=== PATIENT | male | born 1945 | race Caucasian/White ===

== ENCOUNTER 2018-03-29 11:21 | Outpatient (CLI) | payer MEDICARE, BC, SELFPAY ==
[2018-03-29 12:03] LABS: HCT 41.7 % (40.0-50.0); HGB 13.5 g/dL (13.5-17.5); Mean Corp. HGB Concentration 32.4 g/dL (32.0-36.0); Mean Corpuscular Hemoglobin 32.5 pg (27.0-33.0); Mean Corpuscular Volume 100.2 fL (80-95); Mean Platelet Volume 11.4 fL (8.0-11.0); Platelet Count 178 x1000/uL (130-400); RBC 4.16 m/cumm (4.50-6.00); RBC Distribution Width 14.9 % (11.8-14.1); White Blood Cell Count 6.28 k/cumm (4.4-10.8)
[2018-03-29 12:54] LABS: ALT 34 U/L (12-78); AST 22 U/L (15-37); Albumin 4.2 g/dL (3.4-5.0); Alkaline Phosphatase 100 U/L (46-116); Anion Gap 7.9 mmol/L (3-11); BUN 20 mg/dL (7-18); Bilirubin, Total 0.5 mg/dL (0.2-1.0); CO2 30.1 mmol/L (21.0-32.0); CREATININE 1.09 mg/dL (0.70-1.30); Calcium 8.6 mg/dL (8.5-10.1); Chloride 105 mmol/L (98-107); Glucose 83 mg/dL (70-100); Potassium 4.5 mmol/L (3.5-5.1); Sodium 143 mmol/L (136-145); Total Protein 6.5 g/dL (6.4-8.2)
== END 2018-03-29 11:41 ==
PROVIDERS: PCP General Practice; Visit Provider General Practice
DX: Z01.818 Encounter for other preprocedural examination (principal); R69 Illness, unspecified
CPT/HCPCS: 36415; 80053; 85027

== ENCOUNTER 2019-01-07 13:35 | Outpatient (CLI) | payer MEDICARE, BC, SELFPAY ==
--- NOTE | 2019-01-07 11:44 | DI.RAD_ITS ---
SYMPTOM/DIAGNOSIS: FALL, PAIN RIGHT ANKLE: Three views. No priors. No acute fracture or dislocation is seen. There are well corticated osseous densities seen at the tip of the medial and lateral malleoli which appear old. There is a moderate size spur at the plantar surface of the calcaneus There is soft tissue swelling about the ankle. IMPRESSION: No acute fracture or dislocation.
--- NOTE | 2019-01-07 11:44 | DI.RAD_ITS ---
SYMPTOM/DIAGNOSIS: FALL, PAIN RIGHT KNEE: Three views. No acute fracture or dislocation is seen. Mild degenerative changes are present in the knee. There is a moderate suprapatellar joint effusion. IMPRESSION: No acute fracture or dislocation.
--- NOTE | 2019-01-07 11:44 | DI.RAD_ITS ---
SYMPTOM/DIAGNOSIS: FALL, PAIN RIGHT TIB/FIB: Four views. No acute fracture or dislocation is identified. The soft tissues are unremarkable.
== END 2019-01-07 13:55 ==
PROVIDERS: PCP General Practice; Visit Provider General Practice
DX: M79.604 Pain in right leg (principal); W19.XXXA Unspecified fall, initial encounter; M25.561 Pain in right knee; M17.11 Unilateral primary osteoarthritis, right knee; M25.461 Effusion, right knee; M25.571 Pain in right ankle and joints of right foot; M77.31 Calcaneal spur, right foot
CPT/HCPCS: 73562; 73590; 73610

== ENCOUNTER 2019-01-20 14:17 | Outpatient (CLI) | payer MEDICARE, BC, SELFPAY ==
[2019-01-20 14:56] LABS: Hemoglobin A1C 5.7 % (4.5-6.2)
[2019-01-20 16:24] LABS: Anion Gap 8.7 mmol/L (3-11); BUN 22 mg/dL (7-18); CO2 28.3 mmol/L (21.0-32.0); CREATININE 1.55 mg/dL (0.70-1.30); Chloride 105 mmol/L (98-107); Estimated GFR 43.93 (mL/min/1.73m2); Potassium 4.3 mmol/L (3.5-5.1); Sodium 142 mmol/L (136-145)
== END 2019-01-20 14:37 ==
PROVIDERS: PCP General Practice; Visit Provider General Practice
DX: I10 Essential (primary) hypertension (principal); R73.03 Prediabetes
CPT/HCPCS: 36415; 80051; 84520; 82565; 83036

== ENCOUNTER 2019-03-07 11:50 | Outpatient (CLI) | payer MEDICARE, BC, SELFPAY ==
[2019-03-07 13:26] LABS: CREATININE 1.12 mg/dL (0.70-1.30)
== END 2019-03-07 12:10 ==
PROVIDERS: PCP General Practice; Visit Provider General Practice
DX: I10 Essential (primary) hypertension (principal)
CPT/HCPCS: 36415; 82565

== ENCOUNTER 2019-11-29 10:51 | Outpatient (REF) | payer MEDICARE, BC, SELFPAY ==
[2019-11-29 14:41] LABS: Hemoglobin A1C 5.7 % (3.8-5.6)
[2019-11-29 14:53] LABS: Anion Gap 8.1 mmol/L (3-11); BUN 26 mg/dL (7-18); CO2 27.9 mmol/L (21.0-32.0); Calcium 9.2 mg/dL (8.5-10.1); Calculated LDL 55 mg/dL (<100); Chloride 108 mmol/L (98-107); Cholesterol 127 mg/dL (<200); Estimated GFR 59.02 (mL/min/1.73m2); Glucose 106 mg/dL (74-106); HDL Cholesterol 57 mg/dL (40-60); Potassium 4.7 mmol/L (3.5-5.1); Sodium 144 mmol/L (136-145); Triglyceride 79 mg/dL (<150)
== END 2019-11-29 11:11 ==
LOC: NCHCN 10:51
PROVIDERS: PCP Nurse Practitioner Family; Visit Provider Nurse Practitioner Family
DX: E78.5 Hyperlipidemia, unspecified (principal); R73.03 Prediabetes; I10 Essential (primary) hypertension
CPT/HCPCS: 80048; 80061; 83036

== ENCOUNTER 2020-09-06 12:29 | Outpatient (CLI) | payer MEDICARE, BC, SELFPAY ==
--- NOTE | 2020-09-06 06:00 | DI.RAD_ITS ---
EXAM: XR PAIN CLINIC LUMBAR SP 2V CLINICAL HISTORY: Dx: Lumbar Radiculopathy TECHNIQUE: 2D and realtime digital imaging was performed. CONTRAST MATERIAL: None. COMPARISON: No exams were available for comparison FINDINGS: Fluoroscopy was provided for pain management during sacral canal epidural injection. See procedure r eport for details. Fluoro time: 641 seconds Cumulative dose: 30.8 mGy IMPRESSION:
[2020-09-06 12:41] VITALS: BP 128/56; PULSE 67; RESP 16; TEMP 37; O2SAT 96
[2020-09-06] MEDS: methylPREDNISolone ACETATE 80 MG/ML VIAL IJ (13:15)
[2020-09-06] MEDS: Omnipaque 240 MG/ML 50 ML BTL IJ (13:15)
[2020-09-06 13:16] VITALS: BP 131/96; PULSE 66; RESP 15; O2SAT 99
--- NOTE | 2020-09-06 13:17 | PDOC.PAIN ---
Pain Clinic Procedure Note Procedure Note Procedure Note: Date of Service: September 06, 2018 CAUDAL EPIDURAL STEROID WITH CATHETER INJECTION PROCEDURE NOTE COMMENTS: He is status-post lumbar spine surgery X 4. Thus the reason we are using the caudal approach. I did review Ms. Jamison's evaluation from 08/30/2020. Dx: Lumbosacral radiculopathy RADAMES KIRKLAND has been referred to the [facility] for lumbar epidural steroid injection. Patient was greeted by the nurse who verified patients name and . Patient was then taken to the fluoroscopy suite. Patient was interviewed and the medical record reviewed. There were no medical, pharmacologic, radiographic, or other structural contraindications to attempting fluoroscopically guided lumbar epidural steroid injection. Risks and expected side effects as well as potential benefits of the procedure were reviewed and voiced concerns addressed. The patient consent form was signed and witnessed. Standard time-out procedure was performed. Patient was placed in the prone position on the fluoroscopy table and automated blood pressure cuff and pulse oximeter applied. The skin entry point for entering/approaching the epidural space sacral hiatus and marked. Following thorough chlorhexadine preparation of the skin and draping and 1% lidocaine infiltration of the skin entry point and subcutaneous tissues, a 17 gauge Touhy needle was placed under fluoroscopic guidance and with loss of resistance technique into the epidural space. Needle tip placement and depth were aided and confirmed by fluoroscopy. There was no paresthesia or return of blood or CSF through the needle. An Arrow cath was thread to the L5-S1 interspace area and 1 cc's of Omnipaque 240 was injected with clear epidural spread confirmed with fluoroscopy. 80mg depomedrol was injected. There was not any unusual discomfort expressed. Vital signs were stable throughout the procedure and were as recorded in nursing records. Follow up plans and appointments were discussed.Post procedure instruction was given as documented in nursing records and having met discharge criteria and was discharged from the [facility]. COMMENTS: If this procedure is helpful, it can be completed up to 3 times per 12 months. Tutu So DO, MPH Pain Management
== END 2020-09-06 12:30 | disposition home or self-care (01) ==
LOC: PC 12:29
PROVIDERS: PCP Nurse Practitioner Family; Visit Provider Preventive Medicine Occupational Medicine
DX: M54.17 Radiculopathy, lumbosacral region (principal)
CPT/HCPCS: 62323; 72100; J1040; Q9967